=== PATIENT | female | born 1935 | race Caucasian/White ===

== ENCOUNTER 2023-02-04 13:32 | Inpatient (IN) | payer MEDICARE ==
[~2023-02-04] VITALS: Ht 152.4 cm; Wt 41.1 kg
[2023-02-04 15:25] LABS: Albumin/Globulin Ratio 0.8 (0.8-1.8); Bilirubin, Direct 0.2 mg/dL (0.0-0.3); Bilirubin, Indirect 0.3 mg/dL (0.1-0.7); Bilirubin, Total 0.5 mg/dL (0.1-1.0); Calcium, Blood 9.5 mg/dL (8.5-10.1); Creatinine, Blood 0.9 mg/dL (0.40-1.00); Globulin, Blood 3.8 g/dL (2.2-4.0); Phosphorus, Blood 1.9 mg/dL (2.5-4.9); Potassium, Blood 4.3 mmol/L (3.5-5.5); Total Protein, Blood 6.8 g/dL (6.4-8.2)
[2023-02-04 15:30] LABS: BASOPHILS ABSOLUTE AUTO 0.07 K/mm3 (0.00-0.23); BASOPHILS PERCENT AUTO 0 % (0-2); EOSINOPHILS ABSOLUTE AUTO 0.02 K/mm3 (0.00-0.68); EOSINOPHILS PERCENT AUTO 0 % (0-6); Hematocrit 42.5 % (33.0-51.0); Hemoglobin 14.1 g/dL (11.5-16.0); IMMATURE GRAN ABSOLUTE AUTO 0.32 K/mm3 (0.00-0.10); IMMATURE GRAN PERCENT AUTO 1 % (0-1); LYMPHOCYTES ABSOLUTE AUTO 0.84 K/mm3 (0.84-5.20); LYMPHOCYTES PERCENT AUTO 3 % (21-46); MONOCYTES ABSOLUTE AUTO 2.08 K/mm3 (0.16-1.47); MONOCYTES PERCENT AUTO 8 % (4-13); Mean Corpuscular HGB 31.8 pg (26.0-34.0); Mean Corpuscular HGB Conc 33.2 g/dL (31.5-36.5); Mean Corpuscular Volume 96 fL (80-100); Mean Platelet Volume 10.2 fL (9.1-12.4); NEUTROPHILS ABSOLUTE AUTO 21.96 K/mm3 (1.96-9.15); NEUTROPHILS PERCENT AUTO 87 % (41-73); Platelet Count 264 K/mm3 (150-400); RDW Coefficient Variation 12.1 % (11.7-14.2); RDW Standard Deviation 43.4 fL (35.1-46.3); Red Blood Cell Count 4.44 M/mm3 (3.80-5.20); White Blood Cell Count 25.29 K/mm3 (4.00-11.30)
[2023-02-04 15:31] LABS: Source, Urine Straight Cath
[2023-02-04 15:34] LABS: Appearance, Urine Hazy (Clear); Bilirubin, Urine Neg (Neg); Blood, Urine 4+ (Neg); Color, Urine Yellow (P-Yellow); Glucose Qualitative, Urine Neg (Neg); Ketones, Urine 2+ (Neg); Leukocyte Esterase, Urine Neg (Neg); Nitrite, Urine Neg (Neg); Protein, Urine 2+ (Neg); Specific Gravity, Urine 1.025 (1.003-1.022); Urobilinogen, Urine NORM (Normal)
[2023-02-04 15:44] LABS: Amorphous Heavy (0-Heavy); White Blood Cells, Urine 0-2 /hpf (0-5)
[2023-02-04 15:45] LABS: Bacteria Few /hpf; Granular Casts 0-2 /lpf (0); Mucus Light (0-Heavy)
[2023-02-04 15:46] LABS: Squamous Epithelial Cells Rare /hpf (Few)
[2023-02-04 16:10] LABS: Influenza A, PCR NEGATIVE (NEGATIVE); Influenza B, PCR NEGATIVE (NEGATIVE); Resp Syncytial Virus, PCR NEGATIVE (NEGATIVE); SARS-Cov-2 (COVID-19) PCR, MMC NEGATIVE (NEGATIVE)
[2023-02-04 16:23] LABS: International Normalized Ratio 1.04; Prothrombin Time Results 10.9 Sec (9.7-11.5)
[2023-02-04] MEDS ORDERED: TIOT18 INH (20:00)
[2023-02-04] MEDS ORDERED: ALBU90OI INH (20:01)
[2023-02-04] MEDS ORDERED: IPRAT-ALBUT 0.5-3 ML INH (20:01)
[2023-02-04] MEDS ORDERED: SYMBICORT 160-4.6 GM (20:01)
[2023-02-04 20:10] VITALS: BP 119/55
[2023-02-05 01:56] VITALS: BP 137/70
[2023-02-05 05:00] LABS: Hematocrit 35.5 % (33.0-51.0); Hemoglobin 11.5 g/dL (11.5-16.0); Mean Corpuscular HGB 31.5 pg (26.0-34.0); Mean Corpuscular HGB Conc 32.4 g/dL (31.5-36.5); Mean Corpuscular Volume 97 fL (80-100); Mean Platelet Volume 9.6 fL (9.1-12.4); Platelet Count 226 K/mm3 (150-400); RDW Coefficient Variation 12.2 % (11.7-14.2); RDW Standard Deviation 43.8 fL (35.1-46.3); Red Blood Cell Count 3.65 M/mm3 (3.80-5.20); White Blood Cell Count 19.89 K/mm3 (4.00-11.30)
--- NOTE | 2023-02-05 05:12 | NUR ---
SHIFT SUMMARY/ADMISSION NOTE PATIENT ARRIVED TO UNIT FROM ED AT 20:05. ORIENTED TO UNIT, ROOM, CALL LIGHT FUNCTION. IS A/Ox2-3, PLEASANTLY CONFUSED, FORGETFUL AT TIMES, BASELINE PER HOME PRIVATE BUS AND SYS INTEGRATION SENIOR MANAGER. ADMITTED FOR INCREASED C/O SOB, LETHARGY, MILD TEMP, 99.8 ON ADMIT. NO COUGH, LUNGS DIMINISHED. HOME O2 IS PRN, HAS BEEN USING MORE FREQUENTLY LAST 3 DAYS. CURRENTLY ON 2L VIA NC, SATS MID 90s. DENIES PAIN NOR DISCOMFORT. BED ALARM ON FOR PATIENT SAFETY. REQUIRES 1 ASSIST FOR TRANSFER TO BSC. BED LOCKED AND IN LOWEST POSITION, CALL LIGHT WITHIN REACH.
[2023-02-05 05:24] LABS: Bun/Creatinine Ratio 16.8 (12.0-20.0); Calcium, Blood 8.3 mg/dL (8.5-10.1); Creatinine, Blood 0.83 mg/dL (0.40-1.00); Phosphorus, Blood 3.5 mg/dL (2.5-4.9); Potassium, Blood 3.7 mmol/L (3.5-5.5)
[2023-02-05 07:22] VITALS: BP 105/59
[2023-02-05 15:01] VITALS: BP 115/62
--- NOTE | 2023-02-05 18:52 | NUR ---
SHIFT SUMMARY PT CONFUSED BUT REDIRECTABLE. FOUND GETTING UP ON HER OWN WITH SATS DROPPING TO LOW 80'S WITHOUT O2 ON. WEAK BUT 1 PERSON ASSIST WITH TRANSFERS. NOW PAIN. SLOW TO RECOVER AFTER ACTIVITY. SON AT BEDSIDE THIS EVENING. HAS A CAREGIVER THAT CAME TO VISIT THIS AFTERNOON. PLANS FOR PT TO TRANSFER TO SCU THIS EVENIING.
[2023-02-05 19:26] VITALS: BP 120/50
[2023-02-06 05:08] VITALS: BP 123/91
--- NOTE | 2023-02-06 05:22 | NUR ---
SHIFT SUMMARY PT TRANSFERED FROM ROOM 12 TO THE SCU. PT REPEATEDLY GETTING OOB AND IMMEDIATELY GETTING SOB TO WHERE SHE FELT UNABLE TO SCOOT HERSELF BACK INTO BED. HECTOR PLACED AND PT IS UNABLE TO REMEMBER THAT SHE HAS ONE IN PLACED AND CONSISTENTLY ATTEMPTING TO GET OOB DESPITE HER SOB. SHE WOULD SAY SHE HAD TO PEE, AND THEN WOULD SAY OH NEVERMIND I DONT THINK I HAVE TO PEE ANYMORE. PT HAD NO MEDICATIONS TO HELP HER RELAX OR SLEEP AND STAFF HAD BEEN UNABLE TO LEAVE HER BEDSIDE DUE TO HER PERSISTENT GETTING OOB. SPOKE WITH CIRCULAR SAW FILER TO REQUEST A SITTER CYLINDER DEVALVER PROVIDER ALSO NOTIFIED, ONE TIME ORDER OF TRAZADONE OBTAINED AND GIVEN TO PATIENT WITH POSTIVE EFFECT. SITTER AT BEDSIDE.
[2023-02-06 07:59] VITALS: BP 115/53
[2023-02-06 08:03] LABS: BASOPHILS ABSOLUTE AUTO 0.04 K/mm3 (0.00-0.23); BASOPHILS PERCENT AUTO 0 % (0-2); EOSINOPHILS ABSOLUTE AUTO 0.12 K/mm3 (0.00-0.68); EOSINOPHILS PERCENT AUTO 1 % (0-6); Hematocrit 35.1 % (33.0-51.0); Hemoglobin 11.2 g/dL (11.5-16.0); IMMATURE GRAN ABSOLUTE AUTO 0.09 K/mm3 (0.00-0.10); IMMATURE GRAN PERCENT AUTO 1 % (0-1); LYMPHOCYTES ABSOLUTE AUTO 0.92 K/mm3 (0.84-5.20); LYMPHOCYTES PERCENT AUTO 6 % (21-46); MONOCYTES ABSOLUTE AUTO 1.23 K/mm3 (0.16-1.47); MONOCYTES PERCENT AUTO 8 % (4-13); Mean Corpuscular HGB 31.2 pg (26.0-34.0); Mean Corpuscular HGB Conc 31.9 g/dL (31.5-36.5); Mean Corpuscular Volume 98 fL (80-100); Mean Platelet Volume 10.3 fL (9.1-12.4); NEUTROPHILS ABSOLUTE AUTO 12.58 K/mm3 (1.96-9.15); NEUTROPHILS PERCENT AUTO 84 % (41-73); Platelet Count 262 K/mm3 (150-400); RDW Coefficient Variation 12.1 % (11.7-14.2); RDW Standard Deviation 44.1 fL (35.1-46.3); Red Blood Cell Count 3.59 M/mm3 (3.80-5.20); White Blood Cell Count 14.98 K/mm3 (4.00-11.30)
[2023-02-06 08:27] LABS: Bun/Creatinine Ratio 21.3 (12.0-20.0); Calcium, Blood 8.6 mg/dL (8.5-10.1); Creatinine, Blood 0.75 mg/dL (0.40-1.00); Potassium, Blood 3.7 mmol/L (3.5-5.5)
[2023-02-06 15:38] VITALS: BP 114/63
--- NOTE | 2023-02-06 17:27 | NUR ---
SHIFT SUMMARY PT AOX1-2, COOPERATIVE BUT CONFUSED. SHE CAN BE REORIENTED AND IS PLEASANT. WORKED WELL WITH PT TODAY HOWEVER DID EXPERIENCE SOB. NO COMPLAINTS FROM THE PT. SHE HAS BEEN SLEEPING OFF AND ON ALONG WITH TALKING ON THE PHONE FREQUENTLY. SHE IS A I ASSIST TO THE BSC. CALL LIGHT WITHIN REACH, BED IN THE LOWEST POSITION. WILL REPORT TO ONCOMING NURSE.
[2023-02-06 19:54] VITALS: BP 150/78
--- NOTE | 2023-02-07 04:41 | NUR ---
SHIFT SUMMARY PRN TRAZADONE GIVEN WITH GOOD EFFECT, NO OXYGEN DESATS SHE WAS SLEEPING MOST OF NIGHT. FIRE SAFETY REVIEWED, NO IGNITION SOURCES
[2023-02-07 05:01] LABS: BASOPHILS ABSOLUTE AUTO 0.02 K/mm3 (0.00-0.23); BASOPHILS PERCENT AUTO 0 % (0-2); EOSINOPHILS ABSOLUTE AUTO 0.08 K/mm3 (0.00-0.68); EOSINOPHILS PERCENT AUTO 1 % (0-6); Hematocrit 33.6 % (33.0-51.0); Hemoglobin 10.5 g/dL (11.5-16.0); IMMATURE GRAN ABSOLUTE AUTO 0.07 K/mm3 (0.00-0.10); IMMATURE GRAN PERCENT AUTO 1 % (0-1); LYMPHOCYTES ABSOLUTE AUTO 1.07 K/mm3 (0.84-5.20); LYMPHOCYTES PERCENT AUTO 8 % (21-46); MONOCYTES ABSOLUTE AUTO 1.21 K/mm3 (0.16-1.47); MONOCYTES PERCENT AUTO 9 % (4-13); Mean Corpuscular HGB 31.2 pg (26.0-34.0); Mean Corpuscular HGB Conc 31.3 g/dL (31.5-36.5); Mean Corpuscular Volume 100 fL (80-100); Mean Platelet Volume 10.1 fL (9.1-12.4); NEUTROPHILS ABSOLUTE AUTO 10.83 K/mm3 (1.96-9.15); NEUTROPHILS PERCENT AUTO 82 % (41-73); Platelet Count 255 K/mm3 (150-400); RDW Coefficient Variation 12.5 % (11.7-14.2); RDW Standard Deviation 46.3 fL (35.1-46.3); Red Blood Cell Count 3.37 M/mm3 (3.80-5.20); White Blood Cell Count 13.28 K/mm3 (4.00-11.30)
[2023-02-07 05:27] LABS: Bun/Creatinine Ratio 21.8 (12.0-20.0); Calcium, Blood 8.3 mg/dL (8.5-10.1); Creatinine, Blood 0.73 mg/dL (0.40-1.00); Potassium, Blood 3.8 mmol/L (3.5-5.5)
[2023-02-07 08:10] VITALS: BP 102/49
[2023-02-07 10:00] LABS: Base Excess Venous -1.9 mmol/L; Bicarbonate Venous 21.7 mmol/L (24.0-30.0); PO2 Venous 76.3 mmHg (38-42)
[2023-02-07 10:01] LABS: pH Blood Venous 7.19 (7.34-7.37)
--- NOTE | 2023-02-07 11:18 | NUR ---
PT BEING TRANSFERRED TO U
[2023-02-07 12:11] VITALS: BP 112/50
--- NOTE | 2023-02-07 13:13 | NUR ---
TRANSFER NOTE PT TRANSFERRED TO PCU, REPORT GIVEN TO GUIDO LEÓN.
[2023-02-07 13:20] VITALS: BP 113/67
--- NOTE | 2023-02-07 13:32 | NUR ---
PATIENT TRANSFER TO PCU AROUND 1200. ALERT AND ORIENTED TO SELF, FAMILY AND PLACE. PATIENT SLOW TO ANSWER QUESTIONS AND SOFT SPOKEN. DENIES NUMBNESS/TINGLING. PERRLA. MISSING TEETH. ORAL CARE. REPORT WAS GIVEN 1 PERSON ASSIST TO BS. BEDREST AT THIS TIME DUE TO RESPIRATORY STATUS. PUREWICK PLACED, ATTENDS C/D/I. UPON TRANSFER PATIENT WEARING 3L NASAL CANNULA SATING UPPER 90'S. INCREASED WORK OF BREATHING AND PURSED LIPS. RR 20-24. BIPAP PLACED AT 10/5 WITH 3L BLEED IN. IMPROVED WORK OF BREATHING. ANXIETY WITH BIPAP PLACEMENT. DR. RAMIREZ CALLED AND 0.25MG IV ATIVAN GIVEN WITH GOOD RELIEF. PATIENT ABLE TO RELAX AND MAINTAIN BIPAP. LUNGS SOUNDING TIGHT AND DIMINISHED AIR FLOW. TELE SHOWING SINUS TACH WITH HR 90-130'S HR UP TO 130'S WITH MOVEMENT AND ANXIETY. AT REST HR 90-100'S. SBP 110-120'S. DENIES CHEST PAIN/PRESSURE/PALPITATIONS. PPP. NO SIGNS OF EDEMA NOTED. IV SALINE INFUSING UPON TRANSFER. DR. RAMIREZ CALLED, NORMAL SALINE DC'D. IV FLUSHED AND SALINE LOCKED AT THIS TIME. DENIES ABDOMINAL PAIN/NAUSEA. PUREWICK AND ATTENDS IN PLACE. REGULAR DIET ORDERS IN PLACE. PATIENT TOOK A FEW SMALL SIPS OF COFFEE UPON TRANSFER. ORAL CARE COMPLETED. CALL LIGHT IN REACH. BED ALARM IN PLACE. DAUGHTER TANVIR AND SON DIEGO AT BEDSIDE. PALLIATIVE CARE ORDERS IN PLACE. PLAN FOR VBG AT 1430. PATIENT SLEEPING AT THIS TIME WITH BIPAP IN PLACE.
--- NOTE | 2023-02-07 14:01 | NUR ---
PALLIATIVE CARE CALLED AND MESSAGE LEFT FOR CONSULT.
[2023-02-07 15:19] LABS: Base Excess Venous 1.8 mmol/L; PCO2 Venous 51.6 mmHg (38-42); pH Blood Venous 7.34 (7.34-7.37)
[2023-02-07 15:25] VITALS: BP 120/53
--- NOTE | 2023-02-07 16:06 | NUR ---
DR. RAMIREZ UPDATED ON MOST RECENT VBG RESULTS. PATIENT GIVEN BED BATH, TAKEN OFF BIPAP DURING BED BATH AND PATIENT WORKING HARD TO BREATH. BIPAP PLACED BACK ON AND PATIENT RESTING MORE COMFORTABLY. RESPIRATORY CARE IN TO GIVEN BREATHING TREATMENT AT THIS TIME. VITALS SIGNS STABLE.
--- NOTE | 2023-02-07 17:33 | NUR ---
SHIFT SUMMARY: NO ACUTE CHANGES. PATIENT HAS BEEN RESTING COMFORTABLY WITH BIPAP IN PLACE. SATING 90-95%. WORK OF BREATHING IMPROVED. TAKING BREAKS FOR MEALS AND COMFORT, WEARING 2-3L NASAL CANNULA WHEN OFF BIPAP. PATIENT CURRENTLY ON 3L NASAL CANNULA EATING DINNER. TELE CONTINUES TO SHOW SR/ST WITH HR 90-110'S. BP REMAINS STABLE. CONTINUES TO DENY CHEST PAIN/PRESSURE. PUREWICK IN PLACE. PATIENT VOIDED ON BEDPAN DURING BED BATH. DENIES PAIN WITH URINATION. NO SWALLOWING ISSUES NOTED. CALL LIGHT IN REACH. BED ALARM IN PLACE. DENIES NEEDS AT THIS TIME.
[2023-02-07 19:52] VITALS: BP 110/51
[2023-02-08 04:29] VITALS: BP 104/53
[2023-02-08 04:38] LABS: BASOPHILS ABSOLUTE AUTO 0.01 K/mm3 (0.00-0.23); BASOPHILS PERCENT AUTO 0 % (0-2); EOSINOPHILS PERCENT AUTO 0 % (0-6); Hematocrit 33.3 % (33.0-51.0); Hemoglobin 10.7 g/dL (11.5-16.0); IMMATURE GRAN PERCENT AUTO 1 % (0-1); LYMPHOCYTES PERCENT AUTO 3 % (21-46); MONOCYTES ABSOLUTE AUTO 0.18 K/mm3 (0.16-1.47); MONOCYTES PERCENT AUTO 2 % (4-13); Mean Corpuscular HGB 31.4 pg (26.0-34.0); Mean Corpuscular HGB Conc 32.1 g/dL (31.5-36.5); Mean Corpuscular Volume 98 fL (80-100); Mean Platelet Volume 10.3 fL (9.1-12.4); NEUTROPHILS ABSOLUTE AUTO 10.36 K/mm3 (1.96-9.15); NEUTROPHILS PERCENT AUTO 95 % (41-73); Platelet Count 280 K/mm3 (150-400); RDW Coefficient Variation 12.6 % (11.7-14.2); RDW Standard Deviation 45.2 fL (35.1-46.3); Red Blood Cell Count 3.41 M/mm3 (3.80-5.20); White Blood Cell Count 10.95 K/mm3 (4.00-11.30)
[2023-02-08 04:55] LABS: Bun/Creatinine Ratio 28.2 (12.0-20.0); Creatinine, Blood 0.74 mg/dL (0.40-1.00); Potassium, Blood 3.8 mmol/L (3.5-5.5)
--- NOTE | 2023-02-08 06:48 | NUR ---
SHIFT SUMMARY A/Ox1-2, BUT REMAINS COOPERATIVE WITH CARE. VERY SOFT SPOKEN AND IS OFTEN CONFUSED TO WHERE SHE IS, WHY SHE IS HEAR, AND WHO MEMBERS OF STAFF ARE. WITH THIS BEING SAID, NO ACUTE EVENTS OVERNIGHT FOR PT WAS ABLE TO SLEEP T/O MOST OF THE SHIFT. CARDIAC, REMAINS IN SR-ST 90-100'S WITH NO REPORTS OF CP OR PRESSURE T/O THE NIGHT. SBP HAS REMAINED SOFT, BUT STABLE RANGING 100-110'S. RESPIRATORY, MAINTRAINS SPO2 RANGING 90-93% ON 1-2L VIA NC. WORE BiPAP 10/5 W/ 3L BLEED T/O THE MAJORITY OF THE NIGHT. DENIES SOB OR DYSPNEA WHILE AT REST. GI/, CONTINUES TO HAVE INCONTINENT VOIDS. PUREWICK SYSTEM IN PLACE AND DRAINING TEA COLORED URINE TO SUCTION. NO BM FOR THIS SHIFT. CONTINUES TO BE WEAK EVEN WITH SMALL MOVEMENTS IN THE BED. BED ALARM ON T/O THE NIGHT DUE TO CONFUSION WELL INCREASED FALL RISK. ASSESSED PT FOR RISKS OF ANY IGNITION SOURCES WELL BEHAVIORS FOR INCREASED RISKS OF FIRE DANGER. PT EDUCATED ON COMMON SOURCES OF IGNITION WELL NEED TO KEEP A SAFE ENVIRONMENT. PT VOICED UNDERSTANDING. NO NEW ORDERS AT THIS TIME, WILL REPORT TO ONCOMING RN. ANTONIA VELAZQUEZ OF THIS NOTE.
[2023-02-08 07:19] VITALS: BP 141/64
[2023-02-08 11:05] VITALS: BP 135/78
--- NOTE | 2023-02-08 13:17 | NUR ---
UPDATE CALLED IN THE ROOM BY ANOTHER NURSE STATING THAT PT WAS COUGHING AND DESATURATING. FAMILY MEMBER AT BEDSIDE STATED THAT PT HAD CHOKED ON A BITE OF CHICKEN. NONREBREATHER PLACED AND RT AT BEDSIDE TO NT SUCTION. DR. SHARIF AT BEDSIDE. RT ABLE TO SUCTION SMALL AMOUNT OF SECRETIONS. O2 SATS RECOVER ABOVE 90% ON 4L NC. PT NOW NPO AND SPEECH THERAPY EVAL HAS BEEN ORDERED. WILL CONTINUE TO MONITOR CLOSELY
[2023-02-08 16:48] VITALS: BP 129/59
--- NOTE | 2023-02-08 18:39 | NUR ---
SHIFT SUMMARY PT REMAINS ALERT AND ORIENTED, WITH SOME FORGETFULLNESS AT TIMES. BP STABLE. HR REMAINS NSR TO SINUS TACH. 02 SATS HAVE BEEN ABOVE 90% ON 2L NC. PT'S COUGH HAS DECREASED IN FREQUENCY THIS AFTERNOON. PT STATES HER BREATHING HAS IMPROVED THIS EVENING. PT REPOSITIONED Q2H THIS SHIFT. ATTENDS IN PLACE FOR INCONTINENCE. WILL CONTINUE TO MONITOR AND REPORT TO ONCOMING RN
[2023-02-08 19:56] VITALS: BP 157/97
[2023-02-08 23:56] VITALS: BP 125/58
[2023-02-09 04:00] LABS: BASOPHILS ABSOLUTE AUTO 0.04 K/mm3 (0.00-0.23); BASOPHILS PERCENT AUTO 0 % (0-2); EOSINOPHILS PERCENT AUTO 0 % (0-6); Hematocrit 34.5 % (33.0-51.0); Hemoglobin 10.9 g/dL (11.5-16.0); IMMATURE GRAN ABSOLUTE AUTO 0.21 K/mm3 (0.00-0.10); IMMATURE GRAN PERCENT AUTO 1 % (0-1); LYMPHOCYTES ABSOLUTE AUTO 0.44 K/mm3 (0.84-5.20); LYMPHOCYTES PERCENT AUTO 2 % (21-46); MONOCYTES ABSOLUTE AUTO 0.71 K/mm3 (0.16-1.47); MONOCYTES PERCENT AUTO 4 % (4-13); Mean Corpuscular HGB 31.1 pg (26.0-34.0); Mean Corpuscular HGB Conc 31.6 g/dL (31.5-36.5); Mean Corpuscular Volume 99 fL (80-100); Mean Platelet Volume 9.9 fL (9.1-12.4); NEUTROPHILS ABSOLUTE AUTO 16.62 K/mm3 (1.96-9.15); NEUTROPHILS PERCENT AUTO 92 % (41-73); Platelet Count 322 K/mm3 (150-400); RDW Coefficient Variation 12.8 % (11.7-14.2); RDW Standard Deviation 45.6 fL (35.1-46.3); White Blood Cell Count 18.02 K/mm3 (4.00-11.30)
[2023-02-09 04:19] LABS: Albumin, Blood 2.1 g/dL (3.4-5.0); Anion Gap 3 mmol/L (6-16); Blood Urea Nitrogen 27 mg/dL (8-24); Bun/Creatinine Ratio 33.2 (12.0-20.0); CO2, Blood 30 mmol/L (21-32); Calcium, Blood 8.9 mg/dL (8.5-10.1); Chloride, Blood 117 mmol/L (98-108); Creatinine, Blood 0.81 mg/dL (0.40-1.00); Glomerular Filtration Rate 70 (60-); Glucose, Blood 146 mg/dL (70-99); Phosphorus, Blood 1.7 mg/dL (2.5-4.9); Potassium, Blood 3.9 mmol/L (3.5-5.5); Sodium, Blood 150 mmol/L (136-145)
[2023-02-09 04:55] VITALS: BP 121/70
--- NOTE | 2023-02-09 07:38 | NUR ---
SHIFT SUMMARY A/Ox1-2, BUT REMAINS COOPERATIVE WITH CARE. VERY SOFT SPOKEN AND IS OFTEN CONFUSED TO WHERE SHE IS, WHY SHE IS HERE, AND WHO MEMBERS OF STAFF ARE. WITH THIS BEING SAID, NO ACUTE EVENTS OVERNIGHT FOR PT WAS ABLE TO SLEEP T/O MOST OF THE SHIFT. CARDIAC, REMAINS IN SR-ST 90-110'S WITH NO REPORTS OF CP OR PRESSURE T/O THE NIGHT. SBP HAS BEEN MORE STABLE THIS SHIFT RANGING 120-150'S. RESPIRATORY, MAINTRAINS SPO2 RANGING 90-93% ON 1-2L VIA NC. WORE BiPAP 10/5 W/ 3L BLEED T/O THE MAJORITY OF THE NIGHT. DENIES SOB OR DYSPNEA WHILE AT REST. GI/, CONTINUES TO HAVE INCONTINENT VOIDS. PUREWICK SYSTEM IN PLACE AND DRAINING TEA COLORED URINE TO SUCTION. POOR PO INTAKE NOTED. NO BM FOR ME THIS SHIFT. CONTINUES TO BE DECONDITIONED/WEAK EVEN WITH SMALL MOVEMENTS IN THE BED. BED ALARM ON T/O THE NIGHT DUE TO CONFUSION WELL INCREASED FALL RISK. ASSESSED PT FOR RISKS OF ANY IGNITION SOURCES WELL BEHAVIORS FOR INCREASED RISKS OF FIRE DANGER. PT EDUCATED ON COMMON SOURCES OF IGNITION WELL NEED TO KEEP A SAFE ENVIRONMENT. PT VOICED UNDERSTANDING. NO NEW ORDERS AT THIS TIME, WILL REPORT TO ONCOMING RN. ANTONIA VELAZQUEZ OF THIS NOTE.
[2023-02-09 07:40] VITALS: BP 148/91
[2023-02-09 11:39] VITALS: BP 124/58
[2023-02-09 14:56] VITALS: BP 124/63
--- NOTE | 2023-02-09 14:56 | NUR ---
TRANSFER PT TRANSFERED TO MEDICAL FLOOR. CAREGIVER AT BEDSIDE. WATER PROVIDED ON BEDSIDE TABLE. CALL LIGHT IN REACH. 2 NURSE SKIN CHECK COMPLETED. SHONA CARE DONE AND NEW MEPILEX IN PLACE. PT BOOSTED IN BED. EXTRA PILLOWS PROVIDED WELL. PT DENIES PAIN. BREATHING EVEN AND UNLABORED. RT NOTIFIED THAT BIPAP CAME UP WITH PATIENT WELL. PT REQUESTING TO REST FOR NOW. BED ALARM IN PLACE.
--- NOTE | 2023-02-09 15:29 | NUR ---
TRANSFER NOTE PT TRANSFERRED TO ROOM 362 AT 1429. REPORT GIVEN TO YVONNE LORA. PT ALERT AND ORIENTED TO SELF. PLEASANTLY CONFUSED. VSS ON TRANSFER. PT ON NC WITH BIPAP PRN THIS SHIFT. DYSPNEA W/ PURSED LIP BREATHING NOTED WITH EXERTION. PT UP TO CHAIR MOST OF MORNING. PUREWICK IN PLACE DRAINING TEA COLORED URINE, NO BM. POOR PO INTAKE R/T SOB. BED ALARM/CHAIR ALARM ON T/O SHIFT IN PCU. PT TRANSFERRED BY STAFF WITHOUT DIFFICULTY.
[2023-02-09 19:19] VITALS: BP 118/99
[2023-02-10 04:35] VITALS: BP 124/63
[2023-02-10 06:09] LABS: BASOPHILS ABSOLUTE AUTO 0.04 K/mm3 (0.00-0.23); BASOPHILS PERCENT AUTO 0 % (0-2); EOSINOPHILS PERCENT AUTO 0 % (0-6); Hemoglobin 11.1 g/dL (11.5-16.0); IMMATURE GRAN ABSOLUTE AUTO 0.43 K/mm3 (0.00-0.10); IMMATURE GRAN PERCENT AUTO 3 % (0-1); LYMPHOCYTES ABSOLUTE AUTO 0.54 K/mm3 (0.84-5.20); LYMPHOCYTES PERCENT AUTO 3 % (21-46); MONOCYTES PERCENT AUTO 4 % (4-13); Mean Corpuscular HGB 31.2 pg (26.0-34.0); Mean Corpuscular HGB Conc 31.7 g/dL (31.5-36.5); Mean Corpuscular Volume 98 fL (80-100); Mean Platelet Volume 9.8 fL (9.1-12.4); NEUTROPHILS ABSOLUTE AUTO 14.57 K/mm3 (1.96-9.15); NEUTROPHILS PERCENT AUTO 90 % (41-73); Platelet Count 356 K/mm3 (150-400); RDW Coefficient Variation 12.8 % (11.7-14.2); RDW Standard Deviation 46.5 fL (35.1-46.3); Red Blood Cell Count 3.56 M/mm3 (3.80-5.20); White Blood Cell Count 16.18 K/mm3 (4.00-11.30)
[2023-02-10 06:54] LABS: Albumin, Blood 2.2 g/dL (3.4-5.0); Blood Urea Nitrogen 28 mg/dL (8-24); Bun/Creatinine Ratio 38.3 (12.0-20.0); CO2, Blood 32 mmol/L (21-32); Calcium, Blood 9.2 mg/dL (8.5-10.1); Creatinine, Blood 0.73 mg/dL (0.40-1.00); Glomerular Filtration Rate 79 (60-); Glucose, Blood 133 mg/dL (70-99); Phosphorus, Blood 3.9 mg/dL (2.5-4.9)
[2023-02-10 07:22] VITALS: BP 145/84
--- NOTE | 2023-02-10 07:33 | NUR ---
Shift Summary Pt went on BiPap when she was ready for bed and had increased anxiety. She was pulling on her lines a little bit, I gave her an activity vest and asked her to play with that instead and she did. I also gave her 0.25 mg Lorazepam which david her anxiety down enough that she was able to sleep. Pt now prefers BSC instead of purewick. No c/o pain or nausea. Once asleep she slept deeply t/o the night, waking up briefly for pt care. AOx2, cooperative with care.
--- NOTE | 2023-02-10 13:00 | NUR ---
Initial palliative care consult: Keena is an 87 year old lady with a history of vascular dementia, chronic hypoxic resp failure, COPD, CHF, HLD, cardiomyopathy, anxiety and depression. Requested to meet with pt and her family to discuss goals of care and answer questions re: hospice care. Ulises Blair, at bedside. [place] and [place] via speaker phone. Answered questions that family had re: hospice. Pt remained relatively quiet on bipap during the conversation. Discussed options for hospice. Family is interested in placement with hospice. Discussed discharge cannot be delayed if placement options are not found, pt would need to go home with hospice services. Family verbalized understanding. Discussed code status with pt and family. Ulises Blair, (POA) along with other family by phone agree with DNR with comfort measures. Pt will stay on her meds and complete her course of antibiotics for her pneumonia. New POLST form completed to reflect change to hospice/comfort care. Spoke with Dr. Bustos who agrees with POC. Dr. Bustos requested PC RN place comfort orders. Nursing updated. who is working with pt after meeting also notified of change to comfort care. recruiter account manager also notified that pt will be looking for placement options with hospice.
[2023-02-10 13:23] LABS: Anion Gap 3 mmol/L (6-16); Chloride, Blood 113 mmol/L (98-108); Potassium, Blood 4.5 mmol/L (3.5-5.5); Sodium, Blood 148 mmol/L (136-145)
--- NOTE | 2023-02-10 17:13 | NUR ---
SHIFT SUMMARY PT IS ALERT AND ORIENTED X2. COMFORT CARE ORDERS ARE IN. PT IS RESTING COMFORTABLY IN BED. FAMILY IS AT BEDSIDE. CALL LIGHT IN REACH
--- NOTE | 2023-02-11 05:23 | NUR ---
SHIFT SUMMARY: ON COMFORT CARE. WAS RESTING THIS EVENING UNTIL ABOUT 0115 WHEN SHE REMOVED HER OXYGEN AND OXIMETRY AND WAS DANGLING AT BEDSIDE, CONFUSED AND ANXIOUS. REPLACED O2 AND OXIMETRY (O2 SAT HAD DROPPED TO 73%). GOT PT BACK IN BED AND PLACED HER ON BIPAP WITH O2 BLEED IN. STILL HAVING AIR HUNGER EVEN WITH BIPAP, SO MEDICATED WITH ROXANOL AND ATIVAN TO HELP EASE HER BREATHING. SHE CALMED DOWN IN A COUPLE OF MINUTES AND TOLERATED BIPAP THE REST OF THE NIGHT. O2 SAT REBOUNDED TO 90-93%, HR 60-70'S. DENIED PAIN. INCONTINENT OF URINE, ATTENDS IN PLACE.
--- NOTE | 2023-02-11 16:08 | NUR ---
Comfort Care Visit Pt resting in bed upon arrival. Pt denies pain at this time. Pt appears comfortable with no S/S of distress at this time. Family at bedside and offered therapeutic listening and answered questions. Continued supportive visit. Pt and family report no concerns at this time. Palliative Care will remain available
--- NOTE | 2023-02-11 16:29 | NUR ---
SHIFT SUMMARY PT DENIES PAIN. SHE REPORTS BEING COMFORTABLE THIS SHIFT. PO INTAKE HAS INCREASED. Q2 TURNS. DAUGHTER HAS BEEN AT BEDSIDE. NO CHANGES THIS SHIFT
--- NOTE | 2023-02-12 05:57 | NUR ---
SHIFT SUMMARY: ON COMFORT CARE. BECAME A BIT ANXIOUS JUST AFTER SHIFT CHANGE, THINKING HER DAUGHTER WAS COMING BACK TONIGHT BUT SHE HAD LEFT FOR THE DAY. TURNED OFF CONTINUOUS OXIMETRY THIS WAS CONTRIBUTING TO HER ANXIETY A LITTLE. GAVE ATIVAN TO HELP CALM HER, AND SHE SLEPT THROUGH THE NIGHT. DENIED PAIN WHEN ASKED.
--- NOTE | 2023-02-12 12:52 | NUR ---
Comfort Care Visit Pt resting in bed eating lunch. Family at bedside. Offered brief supportive visit. Family reports finding an accepting facility and plan is for Pt to move in between Wednesday and Wednesday. Pt and family report no concerns at this time. Pt appears comfortable with no S/S of distress at this time. Palliative Care will remain available
--- NOTE | 2023-02-13 06:48 | NUR ---
SUMMARY PT IS A&O X2-3, ON COMFORT CARE, WAITING TO D/C W/HOSPICE. PT DENIES PAIN, PURE WICK PLACED THROUGH THE NIGHT, URINE WNL, O2 VIA NC, 1 ASSIST OOB TO BSC, BED ALARM IS ON FOR SAFETY. CALL LIGHT IN REACH, REPORT GIVEN TO DAY RN.
--- NOTE | 2023-02-13 16:32 | NUR ---
SHIFT SUMMARY: Pt remains A&Ox2 this shift. Denies pain. Up to bsc with ast, gen weakness noted. Increased dyspnea with exertion. Able to feed self, decreased appetite. Safety maintained, bed alarm on. Pt reminded to call for ast as needed. Will continue to monitor.
--- NOTE | 2023-02-13 21:35 | NUR ---
1951 PT LYING IN BED, DENIES PAIN OR NAUSEA AT THIS TIME. REPORTS SOB THAT INCREASES WITH EXERTION. PT IS ON 2L O2 NC. PT DENIES NEED FOR ANYTHING AT THIS TIME. NO OTHER APPARENT SIGNS OF DISTRESS. BED ALARM IS ON. CALL LIGHT IS IN REACH.
--- NOTE | 2023-02-13 23:34 | NUR ---
2200 PT LYING IN BED, EYES CLOSED, APPEARS TO BE RESTING. BREATHING IS EVEN, UNLABORED. NO APPARENT SIGNS OF DISTRESS. CALL LIGHT IS IN REACH. BED ALARM IS ON.
--- NOTE | 2023-02-13 23:35 | NUR ---
PT LYING IN BED, AWAKE, DENIES NEED FOR ANYTHING AT THIS TIME. NO APPARENT SIGNS OF DISTRESS. CALL LIGHT IS IN REACH. BED ALARM IS ON.
--- NOTE | 2023-02-14 04:02 | NUR ---
0200 PT JUST FINISHED USING THE BATHROOM WITH CERTIFIED HYPERBARIC TECHNOLOGIST'S ASSITANCE. PT HAS HAD MULT LOOSE BM'S. WILL GET PROTOCOL ORDER FROM DR TO R/O FOR CDIFF AND PUT PT IN ISOLATION UNTIL SAMPLE IS SENT AND WE HAVE RESULTS. PT DENIES NEED FOR ANYTHING ELSE AT THIS TIME. NO OTHER APPARENT SIGNS OF DISTRESS. CALL LIGHT IS IN REACH.
--- NOTE | 2023-02-14 04:04 | NUR ---
PT JUST FINISHED USING BSC WITH ZMT OPERATOR, STOOL SAMPLE COLLECTED AND SENT. WILL WATCH FOR RESULTS. PT DENIES NEED FOR ANYTHING ELSE AT THIS TIME. NO OTHER APPARENT SIGNS OF DISTRESS. CALL LIGHT IS IN REACH. BED ALARM IS ON.
--- NOTE | 2023-02-14 04:06 | NUR ---
PT IS AAO X 2, SOB THAT INCREASES WITH EXERTION, PT IS ON 2L O2 NC. MULT EPISODES OF DIARRHEA, STOOL SAMPLE SENT TO R/O FOR CDIFF.
--- NOTE | 2023-02-14 06:24 | NUR ---
PT LYING IN BED, EYES CLOSED, APPEARS TO BE RESTING.BREATHING IS EVEN, UNLABROED.NO APPARENT SIGNS OF DISTRESS. CALL LIGHT IS IN REACH. NO OTHER CHANGES THIS SHIFT.
[2023-02-14 13:58] LABS: C DIFFICILE DNA NEGATIVE (Negative)
--- NOTE | 2023-02-14 17:15 | NUR ---
SHIFT SUMMARY: JONY IS A&OX 2-3. SHE USES THE CALL LIGHT APPROPRIATELY, IS TOLERATING PO INTAKE WELL, AND HAS DENIED PAIN THROUGHOUT THE SHIFT WITH THE EXCEPTION OF HER TAILBONE WHICH HAS BEEN FLOATED AND PT HAS BEEN ENCOURAGED TO TURN AND REPOSITION ANYTIME SHE IS UNCOMFORTABLE. ATTENDS IN PLACE, PT WITH STRESS INCONTINENCE. PT'S DAUGHTER WAS AT BEDSIDE FOR THE MAJORITY OF THIS SHIFT. MAINTAINING SATS WITH 2L VIA NC, 3L ON EXERTION, ONE-PERSON ASSIST TO THE BEDSIDE COMMODE. SHE IS LYING IN BED WITH THE CALL LIGHT IN REACH. WCTM UNTIL REPORT IS GIVEN TO CUTTER HELPER RN.
[2023-02-15 02:57] VITALS: BP 162/83
--- NOTE | 2023-02-15 05:08 | NUR ---
BATCH STILL OPERATOR SUMMARY REMAINS ON COMFORT CARE. AWAKE AT INTERVALS, SETTING OFF BED ALARM WHEN GETTING UP TO GO TO BEDSIDE COMMODE TO VOID. MULTIPLE ATTEMPTS TO REDIRECT, BUT CONTINUES TO VOICE FRUSTRATION WITH BED ALARM. ABLE TO REPOSITION SELF IN BED. CALL LIGHT IN REACH. WILL CONTINUE TO MONITOR
[2023-02-15 07:44] VITALS: BP 128/66
[2023-02-15 16:10] VITALS: BP 119/60
--- NOTE | 2023-02-15 18:05 | NUR ---
SHIFT SUMMARY ALERT, FREQUENTLY NAPS, ORIENTED TO SELF, PERSON, AND PLACE. PLEASANT, COOEPRATIVE. DOES NOT CALL AND WISHES TO GO HOME. NO TELE. O2 VIA NC AT 2L FOR COMFORT. DENIES SOB OTHERWISE. DENIES PAIN. TOLERATES PUREE DIET AND NECTAR THICK LIQUIDS FOR ASPIRATION RISK. USES BSC, OCCASIONALLY WET IN PULL UPS. FAMILY AND FRIENDS VISITED DURING DAY SHIFT. PLAN IS DISCHARGE HOME ON HOSPICE ON Wed02/17/23. EATING DINNER IN BED AT THIS TIME.
--- NOTE | 2023-02-16 04:36 | NUR ---
SUMMARY- PT A/O X1-2, KNOWS SELF, RECOGNIZES A PICTURE OF DOG. PLEASANT AND INTERACTIVE. FORGETFUL ABOUT LIMIT REMINDERS AND TRIED MULT TIMES TO GET OOB UNATTENDED SETTING BED ALARM OFF. STAFF ABLE TO INTERCEDE BEFORE PT STANDS UP AND ASSIST EITHER TO BATHROOM OR BEDSIDE COMMODE. PT APPEARED TO HAVE SLEPT FROM ABOUT [id number]. WAS INCONT ONCE AT 0400, URGE INCONT. CHANGED LINENS AND ATTENDS AND GOWN. OFFERED WATER AND REFUSED. PT DENIES PAIN ALWAYS. DECLINED ANY PRN ATIVAN FOR SLEEP, STATES SHE DOESN'T LIKE TO TAKE PILLS. WILL REPORT TO DAY RN
[2023-02-16 07:37] VITALS: BP 148/87
--- NOTE | 2023-02-16 14:08 | NUR ---
Comfort Care Visit Pt resting in bed with her eyes closed. Pt wakes to gentle verbal stimuli. Pt denies pain at this time. Pt appears comfortable with no S/S of distress. Offered brief supportive visit. Pt reports no concerns at this time. Spoke with Primary RN Aniya and discussed case. No concerns reported at this time. Palliative Care will remain available
--- NOTE | 2023-02-16 15:58 | NUR ---
SHIFT NOTE PT RESTING QUIETLY. GETS UP UNASSISTED OCCASIONALLY. BED ALARM ON. WALKS INTO THE BATHROOM WITH SBA. MILD SOB WITH ACTIVITY. FAMILY AT BEDSIDE THIS AFTERNOON. OXYGEN JUST DELIVERED FOR DISCHARGE TOMORROW. PT HAS DENID DISCOMFORT OR ANXIETY. EATING WELL. CONTINUE POC.
[2023-02-16 16:28] VITALS: BP 110/59
--- NOTE | 2023-02-17 04:25 | NUR ---
SHIFT SUMMARY NO ACUTE EVENTS DURING SHIFT. PATIENT UP TO COMMODE FREQUENTLY, ATTENDS SATURATED OFTEN AND CHANGED THROUGHOUT SHIFT. BED ALARM CONTINUES TO BE ON FOR PATIENT SAFETY. BED IN LOW POSITION AND CALL LIGHT IN REACH.
[2023-02-17] MEDS ORDERED: MORP20L SL (09:04)
[2023-02-17] MEDS ORDERED: LOREEV XR1 MG PO (09:04)
[2023-02-17] MEDS ORDERED: TRAZ50 PO (09:05)
--- NOTE | 2023-02-17 11:10 | NUR ---
DISCHARGE PT DISCHARGED VIA W/C WITH FAMILY IN ATTENDANCE. NO IV. W/C VAN TO [facility]. CONTINUE POC.
== END 2023-02-17 10:54 | disposition hospice, home (50) | DRG 871 ==
LOC: ER 13:32 → MEDS 18:28 → PCU 18:28 → MEDS 20:17 → PCU 02-07 12:10 → MEDS 02-09 14:42 → ENPENDDIS 02-17 10:18 → MEDS 02-17 10:54
PROVIDERS: Emergency Medicine; Family Medicine; Internal Medicine; Nurse Practitioner Acute Care; ADMIT Hospitalist
PROC: 3E03329 Introduction of Other Anti-infective into Peripheral Vein, Percutaneous Approach (ICD-10-PCS; principal; 2023-02-04)
PROC: 5A09357 Assistance with Respiratory Ventilation, Less than 24 Consecutive Hours, Continuous Positive Airway Pressure (ICD-10-PCS; 2023-02-07)
DX: A41.9 Sepsis, unspecified organism (principal); J18.9 Pneumonia, unspecified organism; J96.22 Acute and chronic respiratory failure with hypercapnia; J96.21 Acute and chronic respiratory failure with hypoxia; F01.518 Vascular dementia, unspecified severity, with other behavioral disturbance; J44.0 Chronic obstructive pulmonary disease with (acute) lower respiratory infection; J44.1 Chronic obstructive pulmonary disease with (acute) exacerbation; I42.9 Cardiomyopathy, unspecified; Z66 Do not resuscitate; Z51.5 Encounter for palliative care; Z20.822 Contact with and (suspected) exposure to COVID-19; F41.8 Other specified anxiety disorders; I11.0 Hypertensive heart disease with heart failure; I50.9 Heart failure, unspecified; E78.5 Hyperlipidemia, unspecified; F17.210 Nicotine dependence, cigarettes, uncomplicated; E83.39 Other disorders of phosphorus metabolism; Z79.899 Other long term (current) drug therapy; Z99.81 Dependence on supplemental oxygen; Z91.198 Patient's noncompliance with other medical treatment and regimen for other reason
CPT/HCPCS: 0241U; 36415; 71045; 71046; 80048; 80053; 80069; 81001; 82248; 82803; 83605; 83735; 84100; 84145; 85025; 85027; 85610; 85730; 87040; 87493; 92526; 92610; 93005; 93010; 94640; 94660; 94664; 94760; 94762; 96361; 96365; 96375; 97110; 97161; 97530; 99285-25; A9270; J0456; J0696; J1650; J2060; J2543; J2930; J7030; J7050; J7060; J7512; P9612